=== PATIENT | male | born 1970 | race Caucasian/White ===

== ENCOUNTER 2017-05-05 06:13 | Day surgery (SDC) | payer BC ==
[2017-05-05] MEDS ORDERED: Lactated Ringers 1,000 ML IV SCH (06:15)
[2017-05-05] MEDS ORDERED: Lidocaine 2% 100 MG/5 ML Syringe IVPUSH ONE (07:30)
[2017-05-05] MEDS ORDERED: Midazolam 1 MG/ML 2 ML SDV IV ONE (07:30)
[2017-05-05] MEDS ORDERED: Propofol 200 MG/20 ML SDV IV ONE (07:30)
--- NOTE | 2017-05-05 07:47 | PCM.OPNOTE ---
- General Post-Op/Procedure Note Date of Surgery/Procedure: 05/05/17 Operative Procedure(s): egd with bx Findings: gastritis Pre Op Diagnosis: dysphagia Post-Op Diagnosis: gastritis Anesthesia Technique: MAC Primary Surgeon: Ashok Luna Anesthesia Provider: Aubrey Colon Pathology: stomach and duodenum Complications: None Condition: Good Free Text/Narrative:: see dictation
--- NOTE | 2017-05-05 12:41 | OR ---
DATE OF OPERATION: 05/05/2017 SURGEON: Ashok Luna MD PROCEDURES PERFORMED: EGD with cold forceps biopsy. PREOPERATIVE DIAGNOSIS: History of dysphagia and gastroesophageal reflux disease. POSTOPERATIVE DIAGNOSIS: Gastritis. INDICATIONS FOR PROCEDURE: This is a 46-year-old white male who underwent an endoscopy many years ago and was diagnosed with gastroesophageal reflux disease. Approximately a year ago, he stopped his PPI and then noted a development and worsening of reflux symptoms as well as dysphagia. His dysphagia has gotten worse and as a result, he has been offered and accepted an EGD. DESCRIPTION OF PROCEDURE: After an excellent IV sedation was administered, the bite block was inserted. The flexible endoscope was passed without difficulty down the patient's esophagus and into the stomach. The stomach was insufflated. The scope was passed through the pylorus to the second portion of the duodenum and slowly withdrawn. The following findings were noted. Duodenum was unremarkable. Stomach demonstrated some mild gastritis. Multiple biopsies were taken. GE junction was unremarkable with no marked erythema noted in the distal esophagus. The esophagus itself was unremarkable, but we did take some biopsies of the distal esophagus to evaluate for possible underlying disease. On withdrawing the scope, there was a slight narrowing noted at the area of the cricopharyngeus, but this did not appear to be clinically significant. The patient tolerated the procedure well and was taken to Recovery in a good condition. /[id number] /MODL
== END 2017-05-05 08:45 | disposition home or self-care (01) ==
LOC: FB.SDS 06:13
PROVIDERS: ATTEND Surgery
DX: K29.50 Unspecified chronic gastritis without bleeding (principal); K21.0 Gastro-esophageal reflux disease with esophagitis
CPT/HCPCS: 43239; 88305; 88342; J2250; J2704; J7120

== ENCOUNTER 2022-07-29 06:21 | Day surgery (SDC) | payer BC, OTHER ==
[~2022-07-29 06:21] MED LIST: Lactated Ringers 1,000 ML IV SCH; Sodium Chloride 0.9% 10 ML Syringe FLUSH PRN
[2022-07-29] MEDS ORDERED: Propofol 200 MG/20 ML SDV IV ONE ×2 (06:22)
[2022-07-29] MEDS ORDERED: Simethicone Drops 40 MG/0.6 ML 30 ML Bottle ONE (07:34)
== END 2022-07-29 08:40 | disposition home or self-care (01) ==
LOC: FB.SDS 06:21
PROVIDERS: ATTEND Surgery
DX: Z12.11 Encounter for screening for malignant neoplasm of colon (principal); K40.90 Unilateral inguinal hernia, without obstruction or gangrene, not specified as recurrent; K21.9 Gastro-esophageal reflux disease without esophagitis; Z79.899 Other long term (current) drug therapy; Z91.018 Allergy to other foods
CPT/HCPCS: 00812; A9270-GY; J2704; J7120

== ENCOUNTER 2023-03-25 06:21 | Day surgery (SDC) | payer BC, OTHER ==
[~2023-03-25 06:21] MED LIST changes: -Lactated Ringers 1,000 ML IV SCH
[2023-03-25] MEDS ORDERED: Ketorolac 30 MG/ML SDV IVPUSH ONE (06:22)
[2023-03-25] MEDS ORDERED: Lactated Ringers 1,000 ML IV ONE (06:22)
[2023-03-25] MEDS ORDERED: fentaNYL 100 MCG/2 ML SDV IV ONE (06:22)
[2023-03-25] MEDS ORDERED: Ondansetron 4 MG/2 ML SDV IVPUSH ONE (06:22)
[2023-03-25] MEDS ORDERED: Midazolam 1 MG/ML 2 ML SDV IV ONE (06:22)
[2023-03-25] MEDS ORDERED: Propofol 200 MG/20 ML SDV IV ONE (06:22)
[2023-03-25] MEDS: Lactated Ringers 1,000 ML IV SCH (07:05)
[2023-03-25] MEDS ORDERED: ceFAZolin 2 GM in Sodium Chloride 0.9% 100 ML IV ONE (07:20)
[2023-03-25] MEDS: ceFAZolin 2 GM Vial IVPUSH ONE (07:24)
[2023-03-25] MEDS: Lidocaine 1% with EPINEPHrine 1:100,000 20 ML MDV INJECT ONE (07:58)
[2023-03-25] MEDS: Bupivacaine 0.5% 30 ML SDV INJECT ONE (07:58)
== END 2023-03-25 10:24 | disposition home or self-care (01) ==
LOC: FB.SDS 06:21
PROVIDERS: ATTEND Surgery
DX: K40.91 Unilateral inguinal hernia, without obstruction or gangrene, recurrent (principal); K21.9 Gastro-esophageal reflux disease without esophagitis; Z79.899 Other long term (current) drug therapy; Z91.018 Allergy to other foods; Z91.013 Allergy to seafood
CPT/HCPCS: 00830; C1781; J0690; J1885; J2250; J2405; J2704; J3010; J3490; J7120